=== PATIENT | female | born 1990 | race Caucasian/White ===

== ENCOUNTER → 2018-05-03 | Outpatient (CLI) | payer OTHER ==
--- NOTE | 2018-05-03 11:07 | REP ---
MAXILLOFACIAL CT WITHOUT CONTRAST: HISTORY: Septal deviation. The sinuses are clear. The osteomeatal units are patent. The middle and inferior nasal turbinates are partially paradoxical. There is minimal deviation of the nasal septum to the right. The cribriform plate, medial burns of the orbits, and optic canals are intact. The carotid canals form a segment of the posterolateral burns of the sphenoid sinus. The sphenoid sinus septum inserts into the right internal carotid canal wall. 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 IMPRESSION: There is no acute or chronic sinusitis. Electronically Signed by Mina Niño MD 05/03/2018 11:08 A
== END ==
LOC: M RAD 10:14
PROVIDERS: ATTEND Specialist
DX: J34.2 Deviated nasal septum (principal); J01.01 Acute recurrent maxillary sinusitis

== ENCOUNTER → 2018-05-18 | Outpatient (REF) | payer OTHER | LOC: M SFHCLERA 11:42 | PROVIDERS: ATTEND Physician Assistant | DX: R50.9 Fever, unspecified (principal) ==

== ENCOUNTER → 2018-05-18 | Outpatient (CLI) | payer OTHER ==
--- NOTE | 2018-05-18 11:23 | REP ---
Chest two views HISTORY: Shortness of breath Comparison: None The lungs are clear. The heart is normal in size. The pulmonary vasculature is normal in appearance. The bony structure is intact. IMPRESSION: No acute disease. Electronically Signed by Mina Niño MD 05/18/2018 11:14 A
== END ==
LOC: M LRY 10:58
PROVIDERS: ATTEND Physician Assistant
DX: R06.02 Shortness of breath (principal)

== ENCOUNTER 2018-06-19 06:54 | Day surgery (SDC) | payer OTHER ==
[~2018-06-19] VITALS: Ht 182.9 cm; Wt 105.2 kg
[~2018-06-19 06:54] MED LIST: CONC54TA4 PO; EPINEPHrine 1MG/ML INJ 30ML MD-VIAL As Ordered ONE; LIDOCAINE W/EPINEPHRINE 1% 20ML VIAL As Ordered ONE; LORA0.5T11 PO; METHYLENE BLUE 0.5% (5MG/ML) 10 ML AMP (PROVAYBLUE)(Q9968 PER 1MG) As Ordered ONE; OXYMETAZOLINE NASAL SPRAY (AFRIN) As Ordered ONE; VENTAER INH
[2018-06-19] MEDS ORDERED: LR 1,000 ML IV SCH ×2 (07:30→10:30)
[2018-06-19 07:36] LABS: URINE PREG TEST NEGATIVE (NEGATIVE)
[2018-06-19] MEDS ORDERED: ONDANSETRON 4MG/2ML VIAL (J2405) As Ordered ONE (07:56)
[2018-06-19] MEDS ORDERED: MIDAZOLAM INJ 2 MG/2 ML VIAL (J2250) As Ordered ONE (07:56)
[2018-06-19] MEDS ORDERED: ROCURONIUM BROMIDE 50 MG/5 ML VIAL As Ordered ONE ×4 (07:56→09:43)
[2018-06-19] MEDS ORDERED: PROPOFOL 500 MG/50 ML VIAL As Ordered ONE (07:56)
[2018-06-19] MEDS ORDERED: fentaNYL 250 MCG/5 ML INJECTION (J3010) As Ordered ONE (07:56)
[2018-06-19] MEDS ORDERED: dexameTHASONE 4 MG/ML 1ML VIAL (J1100) As Ordered ONE (07:56)
[2018-06-19] MEDS ORDERED: SUGAMMADEX SODIUM 500 MG/5 ML VIAL (BRIDION) As Ordered ONE (08:08)
[2018-06-19] MEDS ORDERED: HYDROmorphone HCL 2 MG/ML 1ML VIAL (J1170) As Ordered ONE (08:09)
[2018-06-19] MEDS ORDERED: PROPOFOL 200 MG/20 ML VIAL As Ordered ONE ×4 (09:01→09:43)
[2018-06-19] MEDS ORDERED: ALBUTEROL 6.7GM INHALER **FOR ANES. CART/OMNICELL ONLY As Ordered ONE (10:06)
[2018-06-19] MEDS ORDERED: PERCOCET 5MG/325MG TAB PO PRN (10:30)
[2018-06-19] MEDS ORDERED: fentaNYL 100 MCG/2 ML INJECTION (J3010) IV PRN (10:30)
[2018-06-19] MEDS ORDERED: HYDROMORPHONE HCL 0.5 MG/ 0.5 ML SYRINGE (J1170 PER 1) IV PRN (10:30)
[2018-06-19 11:03] VITALS: BP 154/88
--- NOTE | 2018-06-20 06:44 | RO ---
DATE OF PROCEDURE: 06/19/2018 PREOPERATIVE DIAGNOSIS: Deviated septum, recurrent and acute sinusitis. POSTOPERATIVE DIAGNOSIS: Deviated septum, recurrent and acute sinusitis. PROCEDURE: Septoplasty, endoscopic maxillary antrostomy and ethmoidectomy. SURGEON: Dr. George Colvin [employer]CHO[employer] PSYCHOLOGIST ASSISTANT: ANESTHESIA: INDICATIONS: This is a 28-year-old with a history of recurring sinus infections as well as nasal obstruction. DESCRIPTION OF PROCEDURE: After satisfactory general endotracheal anesthesia was administered and a pharyngeal pack placed the nose was prepared for surgery by cotton-soaked pledgets with Afrin solution to nasal cavity bilaterally. 1% Xylocaine with 1:100,000 epinephrine was used to inject into the nasal septum. A Rickey incision was made on the left side of the nose. A mucoperichondrial flap and envelope was created on the left side of the nasal septum and carried down to the junction of the bony and cartilaginous septum. This was then with an elevator, and an envelope was then created on the right side of the septum. A Jonathan scissors was used to make a cut high in the perpendicular plate in the midportion of the vomer, and a central segment of the bony septum was resected. Next, with the round knife on the Luis elevator, a strip of cartilage was resected from the floor of the nose, mobilizing the quadrilateral cartilage and creating a swinging door. Then, a central segment of cartilaginous septum was resected, preserving a 1 cm dorsal and caudal strut. Double-action rongeur was used to take down deflected portions of the perpendicular plate, as well. Finally, the maxillary crest spur was taken down after elevating mucoperiosteum off both sides of it with a chisel. A segment of the resected cartilage was morselized and placed back into the septal envelope. The incision was closed using an interrupted #5-0 chromic suture. Then, a #4-0 plain suture was placed in a [id number]-[id number]-bazcy fashion through the two leaves of mucoperichondrium to appose them. Endoscopic surgery was started on the left side first with the 0 degree telescope as well as the microdebrider as the primary instrument. It was somewhat crowded of the anterior and middle meatus. There was paradoxical bending of the middle turbinate and access to the lateral nasal wall was limited. Because of this, a partial reduction of the middle turbinate was done. This was done by taking a straight hemostat and making a horizontal crush on the middle turbinate 2[address] and 1[address] Scissors were then used to cut along this crush with a segment of the middle turbinate resected and this gave excellent exposure to the middle meatus. The uncinate process was visualized. With the microdebrider it was taken down and the ethmoidal bulla was perforated and entered. The ethmoid bulla was resected. The ground lamella was then entered. Then working posteriorly anterior lamella bone were removed creating a smooth cavity towards the nasal frontal recesses. This was enlarged by opening up the uncinate process superiorly and the supraorbital ethmoid cell. The natural maxillary sinus ostia was identified and was cannulated and opened with a combination of side biting and up biting forceps. General pledgets were placed in this side while a procedure was performed on the right side and an identical procedure was performed, but the middle turbinate was left undisturbed. Completing the removal of the general pledgets on both sides, there was no significant bleeding. NasaPore was placed into each middle meatus. The pharyngeal pack was removed and throat suctioned. The patient was awakened, extubated, and sent to recovery in satisfactory condition. She will be sent home with Percocet for pain and doxycycline 100 mg twice a day. She will be seen back in the office in one week.
== END 2018-06-19 11:35 | disposition home or self-care (01) ==
LOC: M SDC 06:54
PROVIDERS: ATTEND Specialist
DX: J34.2 Deviated nasal septum (principal); J32.9 Chronic sinusitis, unspecified; J45.909 Unspecified asthma, uncomplicated; M54.9 Dorsalgia, unspecified; F41.9 Anxiety disorder, unspecified; G43.909 Migraine, unspecified, not intractable, without status migrainosus; F90.9 Attention-deficit hyperactivity disorder, unspecified type; J30.89 Other allergic rhinitis; Z91.018 Allergy to other foods; Z91.09 Other allergy status, other than to drugs and biological substances; Z79.899 Other long term (current) drug therapy; Z72.0 Tobacco use
CPT/HCPCS: 30520; 31255; 31256; 84703; 88300; 88305; J1100; J1170; J2250; J2405; J3010; Q9968

== ENCOUNTER 2020-11-27 13:16 | Emergency (ER) | payer OTHER ==
[~2020-11-27] VITALS: Ht 182.9 cm; Wt 99.8 kg
[~2020-11-27 13:16] MED LIST changes: -EPINEPHrine 1MG/ML INJ 30ML MD-VIAL As Ordered ONE; -LIDOCAINE W/EPINEPHRINE 1% 20ML VIAL As Ordered ONE; -LORA0.5T11 PO; +LORA0.5T5 PO; -METHYLENE BLUE 0.5% (5MG/ML) 10 ML AMP (PROVAYBLUE)(Q9968 PER 1MG) As Ordered ONE; -OXYMETAZOLINE NASAL SPRAY (AFRIN) As Ordered ONE
[2020-11-27 13:17] VITALS: BP 153/87
[2020-11-27] MEDS ORDERED: EPIP0.3I2 IM (13:32)
[2020-11-27] MEDS ORDERED: ACET-683 PO (13:33)
[2020-11-27] MEDS ORDERED: PERCOCET 5MG/325MG TAB PO ONE (17:30)
[2020-11-27] MEDS ORDERED: IBUP-1022 PO (18:31)
[2020-11-27] MEDS ORDERED: HYDR-3713 PO (18:31)
== END 2020-11-27 18:54 | disposition home or self-care (01) ==
LOC: M ED 13:16
DX: S80.02XA Contusion of left knee, initial encounter (principal); W23.1XXA Caught, crushed, jammed, or pinched between stationary objects, initial encounter; Y92.9 Unspecified place or not applicable; Y93.9 Activity, unspecified; Y99.9 Unspecified external cause status; J45.909 Unspecified asthma, uncomplicated; F17.200 Nicotine dependence, unspecified, uncomplicated; Z79.899 Other long term (current) drug therapy; Z91.018 Allergy to other foods; Z91.02 Food additives allergy status

== ENCOUNTER → 2020-12-02 | Outpatient (CLI) | payer OTHER ==
[~2020-12-02] MED LIST changes: +ACET-683 PO; +EPIP0.3I2 IM; +HYDR-3713 PO; +IBUP-1022 PO
--- NOTE | 2020-12-02 16:03 | REP ---
INDICATION: LT KNEE PAIN. COMPARISON: None. TECHNIQUE: Three views of the left knee are provided. FINDINGS: The three views of the left knee demonstrate normal bones, joints, and soft tissues. There is no evidence of joint effusion. No fracture or erosive changes seen. IMPRESSION: Negative radiographs of the left knee. Three-view series. <Electronically signed by Ernie Madera > 12/02/20 [id number]
== END ==
LOC: M SOG 14:30
PROVIDERS: ATTEND Orthopaedic Surgery
DX: M25.562 Pain in left knee (principal)

== ENCOUNTER → 2020-12-25 | Outpatient (RCR) | payer OTHER | LOC: M PT 12-08 12:41 | PROVIDERS: ATTEND Orthopaedic Surgery | DX: M25.562 Pain in left knee (principal); S80.02XA Contusion of left knee, initial encounter; X58.XXXA Exposure to other specified factors, initial encounter; Y92.9 Unspecified place or not applicable; Y99.9 Unspecified external cause status; Y93.9 Activity, unspecified ==

== ENCOUNTER 2020-12-31 13:45 | Outpatient (RCR) | payer OTHER | END 2021-01-25 | LOC: M PT 13:45 | PROVIDERS: ATTEND Orthopaedic Surgery | DX: M25.562 Pain in left knee (principal); S80.02XA Contusion of left knee, initial encounter; X58.XXXA Exposure to other specified factors, initial encounter; Y92.9 Unspecified place or not applicable; Y93.9 Activity, unspecified; Y99.9 Unspecified external cause status ==

== ENCOUNTER → 2021-01-19 | Outpatient (CLI) | payer OTHER ==
--- NOTE | 2021-01-19 14:44 | REP ---
INDICATION: LT KNEE PAIN. COMPARISON: Radiographs 12/02/2020. TECHNIQUE: Multiple sequences obtained in the axial, coronal and sagittal planes. FINDINGS: Menisci: Intact, no tear. Cruciate ligaments: Intact. Collateral ligaments: Intact. Extensor mechanism/patellar retinacula: Intact. Cartilage: Smooth, no osteochondral defect. Bone marrow: Normal signal, no edema or occult fracture. Joint fluid: No effusion. Popliteal region: There is a small thin band of fluid in the medial popliteal fossa. This may represent an early Alford's cyst. IMPRESSION: Possible early Alford's cyst in the medial popliteal fossa. Otherwise, negative MRI of the knee. <Electronically signed by Christopher Melchor > 01/19/21 [id number]
== END ==
LOC: M PLAIMG 12:49
PROVIDERS: ATTEND Orthopaedic Surgery
DX: M25.562 Pain in left knee (principal)

== ENCOUNTER 2021-02-18 07:30 | Outpatient (RCR) | payer OTHER | END 2021-02-24 | LOC: M PT 07:30 | PROVIDERS: ATTEND Orthopaedic Surgery | DX: M25.562 Pain in left knee (principal) ==

== ENCOUNTER 2021-03-05 07:03 | Outpatient (RCR) | payer OTHER | END 2021-03-27 | LOC: M PT 07:03 | PROVIDERS: ATTEND Orthopaedic Surgery | DX: M25.562 Pain in left knee (principal) ==